=== PATIENT | male | born 1985 | race Hispanic/Latino ===

== ENCOUNTER 2022-04-22 01:19 | Emergency (ER) | payer BC ==
[~2022-04-22] VITALS: Ht 177.8 cm; Wt 77.1 kg
[2022-04-22 01:39] VITALS: BP 131/81
[2022-04-22] MEDS ORDERED: AMOX500C2 PO (01:55)
== END 2022-04-22 02:02 | disposition home or self-care (01) ==
LOC: EDH 01:19
DX: R22.1 Localized swelling, mass and lump, neck (principal)

== ENCOUNTER → 2022-05-04 | Outpatient (CLI) | payer BC ==
[~2022-05-04] MED LIST: AMOX500C2 PO
== END | disposition home or self-care (01) ==
LOC: RAH 14:08
PROVIDERS: ATTEND Otolaryngology Plastic Surgery within the Head & Neck
DX: R22.1 Localized swelling, mass and lump, neck (principal)
CPT/HCPCS: 76536